=== PATIENT | female | born 1950 | race Caucasian/White ===

== ENCOUNTER 2018-03-24 11:51 | Day surgery (SDC) | payer MEDICARE, MEDICAID, SELFPAY ==
--- NOTE | 2018-03-24 | PATH_ITS ---
[facility] Accession Number: [id number] . 01 Material submitted: . PART A: CECAL POLYP PART B: ASCENDING COLON POLYP PART C: TRANSVERSE COLON POLYPS . 02 Diagnosis: A. Cecal Polyp: Tubular adenoma. . B. Ascending Colon Polyp: Tubular adenoma. . C. Transverse Colon Polyps: Fragments of tubular adenoma and fragment of hyperplastic polyp. MRV/03/26/2018 . 02 Electronically signed: . Guzman Gil MD, PhD, Pathologist NPI- [id number] . 01 Gross description: . Part A: CECAL POLYP: Received in formalin is 1 fragment(s) of monson, soft tissue measuring 0.5 x 0.3 x 0.2 cm submitted entirely in 1 cassette(s) Part B: ASCENDING COLON POLYP: Received in formalin is 1 fragment(s) of monson, soft tissue measuring 0.3 x 0.2 x 0.1 cm submitted entirely in 1 cassette(s) Part C: TRANSVERSE COLON POLYPS: Received in formalin are multiple fragment(s) of monson, soft tissue measuring 1.1 x 0.8 x 0.3 cm in aggregate submitted entirely in 1 cassette(s) /CKI /CKI . 02 Pathologist provided ICD-10: D12.0, D12.2, D12.3 . 02 CPT . 702939, 669006, [id number] Performed at: 01 [facility] [address], [place], [place] [id number] MD Toño Rivera MD Phone: [phone] Performed at: 02 [facility] [address] [place], [place] [id number] MD Carine Green MD Phone: [phone]
[2018-03-24] MEDS: SODIUM CHLORIDE 0.9% 1,000 ML 70 ML IV (13:40)
--- NOTE | 2018-03-24 13:40 | PM.HP.1 ---
History of Present Illness Date Patient Seen: 03/24/18 Chief complaint: [id number] COLONOSCOPY Narrative: 67-year-old female with a history of chronic narcotic use who is here for colon polyp surveillance. Please see details from office note 02/16/2018. At present the patient has no new GI complaints and no alarm symptoms Meds Allergies Allergy/AdvReac Type Severity Reaction Status Date / Time butorphanol [From STADOL] Allergy Unknown Unverified 07/22/17 12:26 Penicillins [PENICILLINS] Allergy Unknown Unverified 07/22/17 12:26 silver sulfadiazine Allergy Unknown Unverified 07/22/17 12:26 [From SILVADENE] Sulfa (Sulfonamide Allergy Unknown Unverified 07/22/17 12:26 Antibiotics) [SULFA (SULFONAMIDE ANTIBIOTICS)] zolpidem [From AMBIEN] AdvReac Severe sleep Unverified 07/22/17 12:26 walking and sleep driving Review of Systems Review of Systems All systems reviewed & are unremarkable except as noted in HPI and below Exam Narrative Exam Narrative: General: Patient is thin, not in apparent distress Cardiovascular: Regular rate and rhythm, no murmurs, rubs, or gallops; no evidence of edema; no palpable abdominal aortic aneurysm Gastrointestinal: Normoactive bowel sounds, soft, nontender, nondistended, no rebound tenderness, no hepatosplenomegaly, no evidence of hernia Assessment & Plan Plan: Assessment/Plan Narrative: 67-year-old female with history of chronic narcotic use who is here for surveillance colonoscopy. No evidence of alarm symptoms Regarding the procedure(s), the risks and potential complications, benefits, and alternatives (including not doing the procedure) were discussed with the patient. The risks include but are not limited to bleeding, splenic injury, infection, perforation which may require surgical intervention, missed lesions, and adverse reactions to sedative medicines. After a question and answer period, the patient agreed to proceed with the procedure(s) and gives informed consent.
[2018-03-24 13:43] VITALS: BP 114/69; PULSE 73; RESP 12; TEMP 36.2; O2SAT 97; BMI 19.2
--- NOTE | 2018-03-24 13:43 | P.HP_ITS ---
History of Present Illness Date Patient Seen: 03/24/18 Chief complaint: [id number] COLONOSCOPY Narrative: 67-year-old female with a history of chronic narcotic use who is here for colon polyp surveillance. Please see details from office note 02/16/2018. At present the patient has no new GI complaints and no alarm symptoms Meds Allergies Allergy/AdvReac Type Severity Reaction Status Date / Time butorphanol [From STADOL] Allergy Unknown Unverified 07/22/17 12:26 Penicillins [PENICILLINS] Allergy Unknown Unverified 07/22/17 12:26 silver sulfadiazine Allergy Unknown Unverified 07/22/17 12:26 [From SILVADENE] Sulfa (Sulfonamide Allergy Unknown Unverified 07/22/17 12:26 Antibiotics) [SULFA (SULFONAMIDE ANTIBIOTICS)] zolpidem [From AMBIEN] AdvReac Severe sleep Unverified 07/22/17 12:26 walking and sleep driving Review of Systems Review of Systems All systems reviewed & are unremarkable except as noted in HPI and below Exam Narrative Exam Narrative: General: Patient is thin, not in apparent distress Cardiovascular: Regular rate and rhythm, no murmurs, rubs, or gallops; no evidence of edema; no palpable abdominal aortic aneurysm Gastrointestinal: Normoactive bowel sounds, soft, nontender, nondistended, no rebound tenderness, no hepatosplenomegaly, no evidence of hernia Assessment & Plan Plan: Assessment/Plan Narrative: 67-year-old female with history of chronic narcotic use who is here for surveillance colonoscopy. No evidence of alarm symptoms Regarding the procedure(s), the risks and potential complications, benefits, and alternatives (including not doing the procedure) were discussed with the patient. The risks include but are not limited to bleeding, splenic injury, infection, perforation which may require surgical intervention, missed lesions, and adverse reactions to sedative medicines. After a question and answer period , the patient agreed to proceed with the procedure(s) and gives informed consent.
[2018-03-24 13:54] VITALS: BMI 19.2
--- NOTE | 2018-03-24 14:06 | PM.OP.ENDO ---
Operative Date/Time/Diagnoses Date of procedure: 03/24/18 Procedure Notes Procedure in detail: Surgeon: Mert Mitchell MD Procedure: Colonoscopy with polypectomy x5 Preoperative diagnosis: Colon polyp surveillance; last colonoscopy 2012 Postoperative diagnosis: Colon polyps x5 status post polypectomy; hypertrophied anal papilla Medications: Monitored anesthesia care due to chronic narcotic use Preanesthesia Assessment An H and P was performed/updated and the Px?s ASA class is 3. The procedure was discussed in detail with the patient. The potential risks and complications including infection, bleeding, missed lesions, perforation, need for surgery in case of perforation, prolonged hospital stay, and were explained. A brief question and answer period was allotted and once all questions were answered, informed consent was obtained. The patient was brought back to the procedure room and placed on standard monitoring. The patient?s vital signs were monitored continuously throughout the entire procedure. Prior to starting, a timeout was performed to confirm the patient?s identity, allergies, medications, and procedure. Procedure in detail The patient was placed in left lateral decubitus position and once adequate sedation was obtained a LAURO was performed. The digital rectal examination did not reveal any palpable lesions. The tip of the colonoscope was placed in the anal canal and advanced without difficulty all the way to the cecum which was identified by the appendiceal orifice and the ileocecal valve. The terminal ileum was intubated to distance of 5 cm from the ileocecal valve with no mucosal abnormality. The colonoscope was brought back to the cecum and careful examination of all harrison of the colon was performed with irrigation of any residual stool. In the cecum there was a 4 mm sessile polyp which was removed by means of cold snare with minimal bleeding. Resection and retrieval were complete In the ascending colon there was note of a 2 mm sessile polyp which was removed by means of cold Jumbo forceps with minimal bleeding. Resection and retrieval were complete. In the transverse colon there was note of a 3 mm sessile polyp which was removed by means of cold Jumbo forceps with minimal bleeding. Resection and retrieval were complete. In the transverse colon there were note of 2 sessile polyps measuring 5 mm and 6 mm. These were removed by means of cold snare with minimal bleeding. Resection and retrieval were complete. Retroflexion was performed in the rectum which revealed hypertrophied anal papillae. The patient tolerated the procedure well and will be brought back to the recovery area to be discharged once criteria are met. The prep was judged to be good and adequate to identify polyps less than 5 mm. The withdrawal time was 13 min. Complications There were no complications and estimated blood loss was minimal. Recommendations: Resume previous diet Continue outPx medications Follow up pathology results Repeat colonoscopy in 3 or 5 years depending on pathology results An emergency contact number was given to the patient for any complications related to the procedure
--- NOTE | 2018-03-24 15:09 | PM.DS.1 ---
History of Present Illness Chief complaint: [phone] [phone] COLONOSCOPY Narrative: 67-year-old female with a history of chronic narcotic use who is here for colon polyp surveillance. Please see details from office note 02/16/2018. At present the patient has no new GI complaints and no alarm symptoms Discharge Providers Primary care physician: Laure Saavedra MD Discharge provider: Mert Mitchell MD Discharge Date: 03/24/18 Exam Vital Signs (past 8 hours): - 03/24/18 13:43 Temperature 97.2 F L Pulse Rate 73 Respiratory Rate 12 Blood Pressure 114/69 Pulse Oximetry 97 Oxygen Delivery Method Room Air Narrative Exam Narrative: General: Patient is thin, not in apparent distress Cardiovascular: Regular rate and rhythm, no murmurs, rubs, or gallops; no evidence of edema; no palpable abdominal aortic aneurysm Gastrointestinal: Normoactive bowel sounds, soft, nontender, nondistended, no rebound tenderness, no hepatosplenomegaly, no evidence of hernia Discharge Plan Discharge Plan Patient Disposition: Home Discharge Med Rec/Prescriptions Prescriptions: Continue sertraline 100 mg Tablet 100 mg PO DAILY RF: 0 varenicline [Chantix] 1 mg Tablet 1 mg PO BID RF: 0 alendronate 70 mg tablet 70 mg PO WEEKLY RF: 0 gabapentin 300 mg capsule 300 mg PO BID RF: 0 omeprazole 20 mg capsule 20 mg PO DAILY RF: 0 oxycodone 10 mg 10 mg PO QID RF: 0 aspirin [Aspirin Low Dose] 81 mg Tablet,Delayed Release (Dr/Ec) 81 mg PO BID RF: 0 temazepam 7.5 mg Capsule 7.5 mg PO BEDTIME PRN (Reason: Insomnia) RF: 0 meloxicam 7.5 mg Tablet 7.5 mg PO BID RF: 0 dicyclomine 20 mg Tablet 20 mg PO QID RF: 0 baclofen 10 mg Tablet 15 mg PO QID RF: 0 montelukast 10 mg Tablet 10 mg PO QPM RF: 0 hydroxyzine HCl 50 mg tablet 50 mg PO 4-6XD PRN (Reason: Itching) RF: 0 pramipexole 1 mg tablet 1 mg PO DAILY RF: 0 Discharge Orders: Discharge (Order); Ordered 03/24/18 Ordered By: Mert Mitchell Visit Report/Discharge Packet Stand Alone Forms: Surgery Discharge Discharge Data Primary Care Provider: Laure Saavedra Attending Provider: Mert Mitchell
[2018-03-24 15:10] VITALS: BP 111/85; PULSE 68; RESP 19; TEMP 36.2; O2SAT 98
[2018-03-24 15:13] VITALS: BP 99/62; PULSE 68; RESP 12; O2SAT 97
[2018-03-24 15:18] VITALS: BP 104/61; PULSE 63; RESP 12; O2SAT 97
[2018-03-24 15:22] VITALS: BP 104/61; PULSE 73; RESP 14; TEMP 36.7; O2SAT 95
--- NOTE | 2018-03-24 15:32 | SUR.PHASEII ---
received report from JEZ Baldwin, pt is tolerating tea, crackers and pudding. pt c/o pain in her hips , states she will take her pain medication when she gets home.
[2018-03-24 15:50] VITALS: BP 116/66; PULSE 66; RESP 16; TEMP 36.4; O2SAT 100
== END 2018-03-24 16:19 | disposition home or self-care (01) ==
PROVIDERS: PCP Internal Medicine; Visit Provider Internal Medicine Gastroenterology
PROC: 0DJD8ZZ Inspection of Lower Intestinal Tract, Via Natural or Artificial Opening Endoscopic (ICD-10-PCS; CPT 45378; principal; 2018-03-24 15:00)
DX: Z86.010 Personal history of colon polyps (principal); J44.9 Chronic obstructive pulmonary disease, unspecified; Z86.73 Personal history of transient ischemic attack (TIA), and cerebral infarction without residual deficits; Z86.19 Personal history of other infectious and parasitic diseases; D12.0 Benign neoplasm of cecum; D12.2 Benign neoplasm of ascending colon; D12.3 Benign neoplasm of transverse colon
CPT/HCPCS: 45385; 45380; 88305; J2704